=== PATIENT | male | born 1955 | race Caucasian/White ===

== ENCOUNTER 2020-10-19 08:00 | Inpatient (IN) ==
[2020-10-19] MEDS ORDERED: GLUCAGON 1 MG VIAL IM PRN ×2 (09:01)
[2020-10-19] MEDS ORDERED: DEXTROSE 50% 25 GM/50 ML VIAL IV PRN ×2 (09:01)
[2020-10-19] MEDS ORDERED: SODIUM CHLORIDE 0.9% 1,000 ML IV SCH (09:30)
[2020-10-19 11:28] LABS: Basophils % 0.7 % (0.0-0.8); Eosinophils # 0.2 10*3/uL (0.0-0.87); Eosinophils % 4.1 % (0.00-10.9); Hematocrit 40.1 VOL% (42.0-52.0); Hemoglobin 13.6 GM/DL (14.0-18.0); Immature Granulocytes % 0.3 %; Immature Granulocytes Absolute 0.02 #; Lymphocytes % 34.5 % (21.2-54.2); Mean Corpuscular HGB Conc 33.9 GM/DL (32-36); Mean Corpuscular Volume 89.7 FL (87-102); Mean Platelet Volume 11.2 FL (9.6-12.0); Monocytes % 8.1 % (1.7-12.7); Neutrophils % 52.3 % (38.7-73.9); Platelet Count 149 T/CUMM (130-400); Red Blood Count 4.47 MC/CUMM (3.8-5.5); Red Cell Distribution Width 12.2 % (9.3-17.3); White Blood Count 5.9 T/CUMM (4-12)
[2020-10-19] MEDS ORDERED: FAMOTIDINE 20 MG TABLET PO ONE (11:40)
[2020-10-19] MEDS ORDERED: DIAZEPAM 5 MG TABLET PO ONE (11:40)
[2020-10-19 11:43] LABS: Albumin 3.8 G/DL (3.4-5.0); Bilirubin,Total 0.5 MG/DL (0.2-1.0); Calcium 9.1 MG/DL (8.5-10.1); Osmolality,Calculated 277.7 MOS/KG (273-304); Potassium 3.9 MMOL/L (3.5-5.1); Total Protein 7.6 G/DL (6.4-8.2)
[2020-10-19] MEDS ORDERED: PNEUMOCOCCAL VACCINE (13 VALENT) 0.5 ML SYRINGE IM ONE (11:47)
[2020-10-19] MEDS: INSULIN REGULAR 100 UNIT/ML SUBCUT SCH ×2 (12:05→17:23)
[2020-10-19] MEDS: CHLORHEXIDINE 0.12% ORAL RINSE 60 ML BOTTLE SWISH/SPIT SCH ×2 (12:37→21:26)
[2020-10-19] MEDS: CHLORHEXIDINE 4% SOLN 118 ML BOTTLE TOP SCH ×2 (12:38→17:23)
[2020-10-19] MEDS ORDERED: hydrALAZINE 20 MG/1 ML VIAL IV PRN (13:05)
[2020-10-19] MEDS ORDERED: CLORAZEPATE 3.75 MG TABLET PO PRN (13:06)
[2020-10-19 14:34] LABS: Allen Test Positive; Pt O2 Delivery Device Room Air
[2020-10-19 14:36] LABS: ABG Base Excess 2.8 MMOL/L (-2.5-2.5); ABG HCO3 26.6 MMOL/L (20-26); ABG Oxygen Saturation 96.6 % (95-100); ABG PCO2 38.2 MM HG (35-48); ABG PH 7.461 (7.35-7.45); ABG TCO2 27.8 MMOL/L (23-27)
[2020-10-20] MEDS: INSULIN REGULAR 100 UNIT/ML SUBCUT SCH ×2 (00:20→09:42)
[2020-10-20] MEDS ORDERED: PAPAVERINE 60 MG/2 ML VIAL ONE (04:23)
[2020-10-20] MEDS ORDERED: VANCOMYCIN 500 MG VIAL ONE (04:24)
[2020-10-20] MEDS ORDERED: VANCOMYCIN 1,000 MG VIAL ONE (04:24)
[2020-10-20] MEDS ORDERED: CEFUROXIME INJ 1,500 MG in SODIUM CHLORIDE 0.9% 100 ML IV ONE (05:00)
[2020-10-20] MEDS ORDERED: DIAZEPAM 5 MG TABLET PO ONE (05:30)
[2020-10-20] MEDS ORDERED: FAMOTIDINE 20 MG TABLET PO ONE (05:30)
[2020-10-20] MEDS ORDERED: AMINOCAPROIC ACID 5,000 MG/20 ML VIAL ONE (05:41)
[2020-10-20] MEDS ORDERED: VECURONIUM 10 MG VIAL IV ONE ×3 (05:42→10:57)
[2020-10-20] MEDS: CHLORHEXIDINE 4% SOLN 118 ML BOTTLE TOP SCH (05:45)
[2020-10-20] MEDS ORDERED: MIDAZOLAM 10 MG/2 ML VIAL ONE ×3 (05:56→08:47)
[2020-10-20] MEDS ORDERED: SUFentanil 250 MCG/5 ML AMP ONE ×2 (05:56)
[2020-10-20] MEDS ORDERED: SODIUM CHLORIDE 0.9% 1,000 ML IV SCH (06:00)
[2020-10-20] MEDS ORDERED: LIDOCAINE 2% 5 ML VIAL ONE ×2 (06:06→10:14)
[2020-10-20] MEDS ORDERED: ETOMIDATE 40 MG/20 ML VIAL IV ONE (06:06)
[2020-10-20] MEDS: CHLORHEXIDINE 0.12% ORAL RINSE 60 ML BOTTLE SWISH/SPIT SCH ×2 (06:34→09:43)
[2020-10-20 07:41] LABS: ABG Base Excess 0.8 MMOL/L (-2.5-2.5); ABG HCO3 25.2 MMOL/L (20-26); ABG PCO2 35.1 MM HG (35-48); ABG PH 7.449 (7.35-7.45); ABG TCO2 21.1 MMOL/L (23-27); Glucose Heart Surgery 142 MG/DL (74-106); Hematocrit Heart Surgery 40.2 PERCENT (42-52); Hemoglobin Heart Surgery 13.1 G/DL (14.0-18.0); Ionized Calcium Arterial 1.15 MMOL/L (1.21-1.46); PCO2 Patient Temp Arterial 35.1 MMHG; PH Patient Temp Arterial 7.449; Patient Temperature 37 CELCIUS; Potassium Heart/CVR 3.9 MMOL/L (3.5-5.1); Sodium Heart/CVR 137 MMOL/L (135-145)
[2020-10-20 07:47] LABS: Bilirubin,Urine Negative (Negative); Blood, Urine Negative (Negative); Glucose,Urine (UA) Negative (Negative); Ketones,Urine Negative (Negative); Mucus,Urine Occasional /LPF (Occasional); Nitrite,Urine Negative (Negative); Protein,Urine Negative; RBC,Urine <1 /HPF (0-4); Urine Appearance CLEAR (Clear); Urine Color Yellow (Yellow); Urine Specific Gravity 1.013 (1.001-1.035); Urine Urobilinogen < 2.0 EU/DL (0.2-1.0)
[2020-10-20] MEDS ORDERED: POTASSIUM CHLORIDE RIDER 20 MEQ/100 ML PREMIX IV ONE (08:14)
[2020-10-20] MEDS ORDERED: NITROPRUSSIDE 50 MG/2 ML VIAL ONE (08:14)
[2020-10-20] MEDS ORDERED: CALCIUM CHLORIDE 1,000 MG/10 ML SYRINGE IV ONE (08:15)
[2020-10-20] MEDS ORDERED: PHENYLEPHRINE DRIP 40 MG/250 ML PREMIX IV ONE (08:15)
[2020-10-20] MEDS ORDERED: ALBUMIN 5% 12.5 GM/250 ML VIAL IV ONE (08:17)
[2020-10-20] MEDS ORDERED: ATROPINE 1 MG/10 ML SYRINGE ONE (08:17)
[2020-10-20] MEDS ORDERED: EPINEPHrine 1 MG/10 ML SYRINGE ONE (08:17)
[2020-10-20 09:10] LABS: Hematocrit Heart Surgery 26.1 PERCENT (42-52); Hemoglobin Heart Surgery 8.4 G/DL (14.0-18.0); PCO2 Patient Temp Venous 33.9 MM HG; PH Patient Temp Venous 7.468; PO2 Patient Temp Venous 42.9 MM HG; Potassium Heart/CVR 4.8 MMOL/L (3.5-5.1); VBG Base Excess 1.2 MEQ/L (0-4); VBG HCO3 25.3 MEQ/L (24-28); VBG Oxygen Saturation 85.9 %; VBG PCO2 37.4 MMHG (41-51); VBG PH 7.438; VBG PO2 49.2 MMHG (17-40); VBG Total CO2 23.5 MMOL/L
[2020-10-20] MEDS ORDERED: CALCIUM CHLORIDE 1,000 MG/10 ML VIAL IV ONE (09:38)
[2020-10-20 09:46] LABS: Hematocrit Heart Surgery 29.7 PERCENT (42-52); Hemoglobin Heart Surgery 9.6 G/DL (14.0-18.0); PCO2 Patient Temp Venous 32.8 MM HG; PH Patient Temp Venous 7.483; PO2 Patient Temp Venous 40.2 MM HG; Potassium Heart/CVR 4.9 MMOL/L (3.5-5.1); VBG Base Excess 1.5 MEQ/L (0-4); VBG HCO3 25.4 MEQ/L (24-28); VBG Oxygen Saturation 78.6 %; VBG PCO2 32.8 MMHG (41-51); VBG PH 7.483; VBG PO2 40.2 MMHG (17-40); VBG Total CO2 22.5 MMOL/L
[2020-10-20] MEDS ORDERED: methylPREDNISolone SOD SUC 1,000 MG/8 ML VIAL ONE (10:14)
[2020-10-20] MEDS ORDERED: ALBUMIN 25% 25 GM/100 ML VIAL IV ONE (10:14)
[2020-10-20] MEDS ORDERED: SODIUM BICARBONATE 50 MEQ/50 ML VIAL IV ONE (10:15)
[2020-10-20] MEDS ORDERED: MANNITOL 100 GM/500 ML BAG IV ONE (10:15)
[2020-10-20] MEDS ORDERED: DEXTROSE 5% KCL 20 MEQ 20 MEQ/1,000 ML BAG IV ONE (10:15)
[2020-10-20] MEDS ORDERED: PROTAMINE SULFATE 250 MG/25 ML VIAL IV ONE (10:15)
[2020-10-20] MEDS ORDERED: HEPARIN 10,000 UNIT/10 ML VIAL ONE (10:15)
[2020-10-20] MEDS ORDERED: PROTAMINE SULFATE 50 MG/5 ML VIAL IV ONE (10:15)
[2020-10-20] MEDS ORDERED: FUROSEMIDE 20 MG/2 ML VIAL ONE (10:15)
[2020-10-20 10:18] LABS: ABG Base Excess 0.6 MMOL/L (-2.5-2.5); ABG PCO2 33.1 MM HG (35-48); ABG PH 7.465 (7.35-7.45); ABG TCO2 21.1 MMOL/L (23-27); Glucose Heart Surgery 255 MG/DL (74-106); Hematocrit Heart Surgery 35.9 PERCENT (42-52); Hemoglobin Heart Surgery 11.6 G/DL (14.0-18.0); Ionized Calcium Arterial 1.23 MMOL/L (1.21-1.46); PCO2 Patient Temp Arterial 33.1 MMHG; PH Patient Temp Arterial 7.465; Patient Temperature 37 CELCIUS; Potassium Heart/CVR 4.1 MMOL/L (3.5-5.1); Sodium Heart/CVR 134 MMOL/L (135-145)
[2020-10-20] MEDS ORDERED: NITROPRUSSIDE 100 MG in DEXTROSE 5% 250 ML IV PRN (10:33)
[2020-10-20] MEDS ORDERED: SODIUM CHLORIDE 0.45% 1,000 ML IV SCH ×2 (10:33)
[2020-10-20] MEDS ORDERED: MAGNESIUM SULF RIDER 4 GM/100 ML PREMIX IV PRN (10:33)
[2020-10-20] MEDS ORDERED: MORPHINE 10 MG/1 ML VIAL IV PRN (10:33)
[2020-10-20] MEDS ORDERED: PHENYLEPHRINE DRIP 40 MG/250 ML PREMIX IV PRN (10:33)
[2020-10-20] MEDS ORDERED: INSULIN REGULAR DRIP 100 ML IV SCH (10:33)
[2020-10-20] MEDS ORDERED: VECURONIUM 10 MG VIAL IV PRN ×2 (10:33)
[2020-10-20] MEDS ORDERED: MAGNESIUM SULF RIDER 2 GM/50 ML PREMIX IV PRN (10:33)
[2020-10-20] MEDS ORDERED: MORPHINE 4 MG/1 ML VIAL IV PRN (10:33)
[2020-10-20] MEDS ORDERED: LACTATED RINGERS 250 ML IV PRN (10:33)
[2020-10-20] MEDS ORDERED: ACETAMINOPHEN 650 MG SUPP RECTAL PRN (10:33)
[2020-10-20] MEDS ORDERED: DEXTROSE 50% 25 GM/50 ML VIAL IV PRN ×2 (10:33)
[2020-10-20] MEDS ORDERED: ONDANSETRON 4 MG/2 ML VIAL IV PRN (10:33)
[2020-10-20] MEDS ORDERED: INSULIN REGULAR 100 UNIT/ML IV ONE (10:33)
[2020-10-20] MEDS ORDERED: MIDAZOLAM 2 MG/2 ML VIAL IV PRN (10:33)
[2020-10-20] MEDS ORDERED: CHLORHEXIDINE 4% SOLN 118 ML BOTTLE TOP PRN (10:33)
[2020-10-20] MEDS ORDERED: CALCIUM CHLORIDE 1,000 MG/10 ML SYRINGE IV PRN (10:33)
[2020-10-20] MEDS ORDERED: INSULIN REGULAR 100 UNIT/ML IV PRN (10:33)
[2020-10-20] MEDS ORDERED: SEVOFLURANE 1 UNIT/15 MINUTE INH ONE (10:56)
[2020-10-20 11:18] LABS: ABG Base Excess 1.4 MMOL/L (-2.5-2.5); ABG HCO3 25.7 MMOL/L (20-26); ABG Oxygen Saturation 99.9 % (95-100); ABG PH 7.483 (7.35-7.45); ABG TCO2 20.3 MMOL/L (23-27); Glucose Heart Surgery 253 MG/DL (74-106); Hematocrit Heart Surgery 45.2 PERCENT (42-52); Hemoglobin Heart Surgery 14.8 G/DL (14.0-18.0); Potassium Heart/CVR 3.6 MMOL/L (3.5-5.1)
[2020-10-20 11:19] LABS: Basophils % 0.5 % (0.0-0.8); Eosinophils # 0.2 10*3/uL (0.0-0.87); Eosinophils % 1.7 % (0.00-10.9); Hemoglobin 13.2 GM/DL (14.0-18.0); Immature Granulocytes % 0.3 %; Immature Granulocytes Absolute 0.03 #; Lymphocytes # 0.8 10*3/uL (1.4-4.0); Lymphocytes % 9.3 % (21.2-54.2); Mean Corpuscular HGB Conc 34.7 GM/DL (32-36); Mean Corpuscular Volume 87.6 FL (87-102); Mean Platelet Volume 10.9 FL (9.6-12.0); Monocytes % 4.9 % (1.7-12.7); Neutrophils % 83.3 % (38.7-73.9); Platelet Count 122 T/CUMM (130-400); Red Blood Count 4.34 MC/CUMM (3.8-5.5); Red Cell Distribution Width 12.2 % (9.3-17.3); White Blood Count 8.7 T/CUMM (4-12)
[2020-10-20] MEDS: LACTATED RINGERS 1,000 ML IV PRN ×6 (11:30→21:46)
[2020-10-20] MEDS: MIDAZOLAM 10 MG/2 ML VIAL IV PRN ×4 (11:30→17:20)
[2020-10-20 11:34] LABS: INR 1.1; PT Patient Result 11.9 SECS (10.5-12.0); Partial Thromboplastin Time 27.2 SECS (23.9-33.8)
[2020-10-20 11:47] LABS: CKMB % 5.6 %
[2020-10-20 11:52] LABS: Albumin 3.9 G/DL (3.4-5.0); Bilirubin,Total 1.2 MG/DL (0.2-1.0); Calcium 9.2 MG/DL (8.5-10.1); Osmolality,Calculated 281.7 MOS/KG (273-304); Potassium 3.7 MMOL/L (3.5-5.1); Total Protein 7.1 G/DL (6.4-8.2)
[2020-10-20 11:56] LABS: High Sensitive Troponin I* 3608.6 ng/L (0-78)
[2020-10-20] MEDS: POTASSIUM CHLORIDE RIDER 20 MEQ/100 ML PREMIX IV PRN ×4 (12:07→23:21)
[2020-10-20] MEDS: POTASSIUM CHLORIDE RIDER 10 MEQ/100 ML PREMIX IV PRN ×2 (12:37→17:57)
[2020-10-20 13:24] LABS: ABG HCO3 25.3 MMOL/L (20-26); ABG Oxygen Saturation 99.7 % (95-100); ABG PCO2 32.6 MM HG (35-48); ABG PH 7.472 (7.35-7.45); ABG TCO2 20.6 MMOL/L (23-27); Glucose Heart Surgery 180 MG/DL (74-106); Hematocrit Heart Surgery 40.8 PERCENT (42-52); Hemoglobin Heart Surgery 13.3 G/DL (14.0-18.0); Potassium Heart/CVR 3.7 MMOL/L (3.5-5.1)
[2020-10-20] MEDS ORDERED: HALOPERIDOL 5 MG/ML AMP IV ONE (15:23)
[2020-10-20] MEDS: ALBUMIN 5% 12.5 GM/250 ML VIAL IV PRN ×3 (15:30→17:59)
[2020-10-20 16:51] LABS: ABG Base Excess 0.2 MMOL/L (-2.5-2.5); ABG HCO3 24.7 MMOL/L (20-26); ABG Oxygen Saturation 99.7 % (95-100); ABG PH 7.382 (7.35-7.45); ABG TCO2 22.4 MMOL/L (23-27); Glucose Heart Surgery 124 MG/DL (74-106); Hematocrit Heart Surgery 39.7 PERCENT (42-52); Hemoglobin Heart Surgery 12.9 G/DL (14.0-18.0); Potassium Heart/CVR 3.8 MMOL/L (3.5-5.1)
[2020-10-20] MEDS ORDERED: METOPROLOL SUCCINATE XL 25 MG TABLET PO ONE (18:21)
[2020-10-20] MEDS: KETOROLAC 30 MG/1 ML VIAL IV SCH ×2 (18:35→23:35)
[2020-10-20 18:53] LABS: CKMB % 3.9 %
[2020-10-20 18:55] LABS: High Sensitive Troponin I* 5722.4 ng/L (0-78)
[2020-10-20 20:37] LABS: ABG Base Excess 0.9 MMOL/L (-2.5-2.5); ABG HCO3 23.6 MMOL/L (20-26); ABG Oxygen Saturation 98.7 % (95-100); ABG PCO2 31.6 MM HG (35-48); ABG PH 7.492 (7.35-7.45); ABG PO2 156.5 MM HG (80-95); ABG TCO2 24.6 MMOL/L (23-27); Glucose Heart Surgery 156 MG/DL (74-106); Potassium Heart/CVR 4.1 MMOL/L (3.5-5.1)
[2020-10-20] MEDS ORDERED: CHLORHEXIDINE 0.12% ORAL RINSE 60 ML BOTTLE SWISH/SPIT SCH (21:00)
[2020-10-21 01:50] LABS: ABG HCO3 25.4 MMOL/L (20-26); ABG Oxygen Saturation 99.9 % (95-100); ABG PCO2 31.6 MM HG (35-48); ABG PH 7.485 (7.35-7.45); ABG TCO2 21.3 MMOL/L (23-27); Glucose Heart Surgery 117 MG/DL (74-106); Hematocrit Heart Surgery 33.2 PERCENT (42-52); Hemoglobin Heart Surgery 10.8 G/DL (14.0-18.0); Potassium Heart/CVR 3.9 MMOL/L (3.5-5.1)
[2020-10-21 03:54] LABS: ABG Base Excess 0.3 MMOL/L (-2.5-2.5); ABG HCO3 24.7 MMOL/L (20-26); ABG Oxygen Saturation 99.9 % (95-100); ABG PCO2 32.6 MM HG (35-48); ABG PH 7.465 (7.35-7.45); ABG TCO2 20.9 MMOL/L (23-27); Glucose Heart Surgery 122 MG/DL (74-106); Hematocrit Heart Surgery 33.9 PERCENT (42-52)
[2020-10-21] MEDS ORDERED: FUROSEMIDE 40 MG/4 ML VIAL IV ONE (04:04)
[2020-10-21 04:09] LABS: Basophils % 0.1 % (0.0-0.8); Hematocrit 32.3 VOL% (42.0-52.0); Immature Granulocytes % 0.4 %; Immature Granulocytes Absolute 0.06 #; Lymphocytes % 6.6 % (21.2-54.2); Mean Corpuscular HGB Conc 33.4 GM/DL (32-36); Mean Corpuscular Volume 90.5 FL (87-102); Mean Platelet Volume 11.7 FL (9.6-12.0); Monocytes % 5.9 % (1.7-12.7); Platelet Count 115 T/CUMM (130-400); Red Blood Count 3.57 MC/CUMM (3.8-5.5); Red Cell Distribution Width 12.5 % (9.3-17.3)
[2020-10-21 04:10] LABS: Hemoglobin 10.8 GM/DL (14.0-18.0); White Blood Count 14.6 T/CUMM (4-12)
[2020-10-21 04:24] LABS: CKMB % 3.3 %
[2020-10-21] MEDS ORDERED: CEFUROXIME INJ 1,500 MG in SODIUM CHLORIDE 0.9% 100 ML IV SCH (04:30)
[2020-10-21 04:48] LABS: Albumin 3.6 G/DL (3.4-5.0); Bilirubin,Direct 0.18 MG/DL (0.0-0.20); Bilirubin,Total 0.6 MG/DL (0.2-1.0); Calcium 8.6 MG/DL (8.5-10.1); Osmolality,Calculated 278.4 MOS/KG (273-304); Total Protein 6.3 G/DL (6.4-8.2)
[2020-10-21] MEDS: POTASSIUM CHLORIDE RIDER 20 MEQ/100 ML PREMIX IV PRN (04:55)
[2020-10-21] MEDS: KETOROLAC 30 MG/1 ML VIAL IV SCH ×4 (06:32→20:50)
[2020-10-21 06:49] LABS: ABG Base Excess -0.1 MMOL/L (-2.5-2.5); ABG HCO3 23.2 MMOL/L (20-26); ABG Oxygen Saturation 95.9 % (95-100); ABG PH 7.464 (7.35-7.45); ABG PO2 82.5 MM HG (80-95); ABG TCO2 24.2 MMOL/L (23-27); Glucose Heart Surgery 186 MG/DL (74-106); Hemoglobin Heart Surgery 11.6 G/DL (14.0-18.0); Potassium Heart/CVR 3.8 MMOL/L (3.5-5.1)
[2020-10-21] MEDS ORDERED: DEXTROMETHORPHAN PO PRN (06:59)
[2020-10-21] MEDS ORDERED: PHENYLEPHRINE PO PRN (06:59)
[2020-10-21] MEDS ORDERED: CHLORPHENIRAMINE PO PRN (06:59)
[2020-10-21] MEDS ORDERED: DEXTROSE 50% 25 GM/50 ML VIAL IV PRN ×2 (07:37)
[2020-10-21] MEDS ORDERED: MAGNESIUM SULF RIDER 2 GM/50 ML PREMIX IV PRN (07:37)
[2020-10-21] MEDS ORDERED: GLUCAGON 1 MG VIAL IM PRN ×2 (07:37)
[2020-10-21] MEDS ORDERED: MAGNESIUM SULF RIDER 4 GM/100 ML PREMIX IV PRN (07:37)
[2020-10-21] MEDS ORDERED: ONDANSETRON 4 MG/2 ML VIAL IV PRN (07:37)
[2020-10-21] MEDS ORDERED: ACETAMINOPHEN 325 MG TABLET PO PRN (07:37)
[2020-10-21] MEDS ORDERED: INSULIN REGULAR 100 UNIT/ML SUBCUT SCH (07:37)
[2020-10-21] MEDS ORDERED: oxyCODONE/ACETAMINOPHEN 5-325 MG TABLET PO PRN (07:37)
[2020-10-21] MEDS ORDERED: ZALEPLON 5 MG CAPSULE PO PRN (07:37)
[2020-10-21] MEDS ORDERED: ALUMINUM/MAGNES/SIMETH MAX STR 30 ML UDCUP PO PRN (07:37)
[2020-10-21] MEDS: FERROUS SULFATE 325 MG TABLET PO SCH (08:35)
[2020-10-21] MEDS: DOCUSATE SODIUM 100 MG CAPSULE PO SCH (08:35)
[2020-10-21] MEDS: ASPIRIN EC 325 MG TABLET PO SCH (08:35)
[2020-10-21] MEDS: LOSARTAN 25 MG TABLET PO SCH (08:36)
[2020-10-21] MEDS: METOPROLOL SUCCINATE XL 25 MG TABLET PO SCH (08:36)
[2020-10-21] MEDS: PANTOPRAZOLE 40 MG TABLET PO SCH (08:36)
[2020-10-21] MEDS: ISOSORBIDE MONONITRATE 30 MG TABLET PO SCH (08:36)
[2020-10-21] MEDS: CHLORHEXIDINE 0.12% ORAL RINSE 60 ML BOTTLE SWISH/SPIT SCH (08:37)
[2020-10-21] MEDS: INSULIN REGULAR 100 UNIT/ML SUBCUT SCH ×4 (08:38→20:50)
[2020-10-21] MEDS: SODIUM CHLOR 0.45% KCL 20 MEQ 20 MEQ/1,000 ML BAG IV SCH (09:03)
[2020-10-21] MEDS: CEFUROXIME INJ 1,500 MG in SODIUM CHLORIDE 0.9% 100 ML IV SCH (16:27)
[2020-10-21] MEDS ORDERED: METOCLOPRAMIDE 10 MG/2 ML VIAL IV ONE (18:17)
[2020-10-21] MEDS ORDERED: PROMETHAZINE INJ 12.5 MG in SODIUM CHLORIDE 0.9% 50 ML IV ONE (19:00)
[2020-10-21] MEDS: metFORMIN 500 MG TABLET PO SCH (20:50)
[2020-10-22] MEDS: KETOROLAC 30 MG/1 ML VIAL IV SCH ×4 (00:57→20:57)
[2020-10-22] MEDS: CHLORHEXIDINE 0.12% ORAL RINSE 60 ML BOTTLE SWISH/SPIT SCH ×3 (00:57→20:57)
[2020-10-22] MEDS ORDERED: FUROSEMIDE 40 MG/4 ML VIAL IV ONE (06:00)
[2020-10-22] MEDS: INSULIN REGULAR 100 UNIT/ML SUBCUT SCH ×6 (06:19→20:57)
[2020-10-22 06:50] LABS: Basophils % 0.1 % (0.0-0.8); Eosinophils % 0.1 % (0.00-10.9); Hematocrit 31.8 VOL% (42.0-52.0); Hemoglobin 10.2 GM/DL (14.0-18.0); Immature Granulocytes % 0.6 %; Immature Granulocytes Absolute 0.08 #; Lymphocytes # 2.5 10*3/uL (1.4-4.0); Lymphocytes % 17.7 % (21.2-54.2); Mean Corpuscular HGB Conc 32.1 GM/DL (32-36); Mean Corpuscular Volume 93.3 FL (87-102); Mean Platelet Volume 11.9 FL (9.6-12.0); Neutrophils % 74.5 % (38.7-73.9); Platelet Count 126 T/CUMM (130-400); Red Blood Count 3.41 MC/CUMM (3.8-5.5); Red Cell Distribution Width 13.1 % (9.3-17.3); White Blood Count 14.2 T/CUMM (4-12)
[2020-10-22] MEDS: CEFUROXIME INJ 1,500 MG in SODIUM CHLORIDE 0.9% 100 ML IV SCH ×2 (07:14→17:35)
[2020-10-22 07:15] LABS: Albumin 3.7 G/DL (3.4-5.0); Bilirubin,Direct 0.2 MG/DL (0.0-0.20); Bilirubin,Indirect 0.4 MG/DL (0.0-1.0); Bilirubin,Total 0.6 MG/DL (0.2-1.0); Calcium 8.4 MG/DL (8.5-10.1); Osmolality,Calculated 278.5 MOS/KG (273-304); Potassium 3.6 MMOL/L (3.5-5.1); Total Protein 6.7 G/DL (6.4-8.2)
[2020-10-22] MEDS: PANTOPRAZOLE 40 MG TABLET PO SCH (08:28)
[2020-10-22] MEDS: LOSARTAN 25 MG TABLET PO SCH (08:28)
[2020-10-22] MEDS: DOCUSATE SODIUM 100 MG CAPSULE PO SCH (08:29)
[2020-10-22] MEDS: FERROUS SULFATE 325 MG TABLET PO SCH (08:29)
[2020-10-22] MEDS: ASPIRIN EC 325 MG TABLET PO SCH (08:29)
[2020-10-22] MEDS: METOPROLOL SUCCINATE XL 25 MG TABLET PO SCH (08:29)
[2020-10-22] MEDS: ISOSORBIDE MONONITRATE 30 MG TABLET PO SCH (08:29)
[2020-10-22] MEDS: MAGNESIUM HYDROXIDE SUSP 30 ML UDCUP PO PRN (08:36)
[2020-10-22] MEDS: SODIUM CHLOR 0.45% KCL 20 MEQ 20 MEQ/1,000 ML BAG IV SCH (10:40)
[2020-10-22] MEDS: metFORMIN 500 MG TABLET PO SCH (20:57)
[2020-10-23] MEDS: INSULIN REGULAR 100 UNIT/ML SUBCUT SCH ×6 (00:32→20:26)
[2020-10-23] MEDS: KETOROLAC 30 MG/1 ML VIAL IV SCH ×4 (02:17→20:25)
[2020-10-23] MEDS: CEFUROXIME INJ 1,500 MG in SODIUM CHLORIDE 0.9% 100 ML IV SCH ×2 (05:33→16:49)
[2020-10-23 05:41] LABS: Basophils % 0.3 % (0.0-0.8); Eosinophils # 0.2 10*3/uL (0.0-0.87); Eosinophils % 1.6 % (0.00-10.9); Hematocrit 30.2 VOL% (42.0-52.0); Hemoglobin 9.8 GM/DL (14.0-18.0); Immature Granulocytes % 0.4 %; Immature Granulocytes Absolute 0.04 #; Lymphocytes # 2.5 10*3/uL (1.4-4.0); Lymphocytes % 26.7 % (21.2-54.2); Mean Corpuscular HGB Conc 32.5 GM/DL (32-36); Mean Corpuscular Volume 92.9 FL (87-102); Mean Platelet Volume 10.9 FL (9.6-12.0); Monocytes % 10.1 % (1.7-12.7); Neutrophils % 60.9 % (38.7-73.9); Platelet Count 118 T/CUMM (130-400); Red Blood Count 3.25 MC/CUMM (3.8-5.5); Red Cell Distribution Width 12.9 % (9.3-17.3); White Blood Count 9.4 T/CUMM (4-12)
[2020-10-23 06:02] LABS: Alanine Aminotransferase 16 U/L (16-61); Albumin 3.1 G/DL (3.4-5.0); Alkaline Phosphatase 49 U/L (45-117); Aspartate Amino Transferase 20 U/L (0-37); Bilirubin,Indirect 0.5 MG/DL (0.0-1.0); Blood Urea Nitrogen 14 MG/DL (7-18); Carbon Dioxide 30 MMOL/L (21-32); Estimated Glom Filtration Rate 126 ML/MIN; Glucose 121 MG/DL (74-106); Osmolality,Calculated 276.7 MOS/KG (273-304); Potassium 3.4 MMOL/L (3.5-5.1); Sodium 138 MMOL/L (136-145)
[2020-10-23] MEDS: MAGNESIUM HYDROXIDE SUSP 30 ML UDCUP PO PRN (08:15)
[2020-10-23] MEDS: DOCUSATE SODIUM 100 MG CAPSULE PO SCH (08:18)
[2020-10-23] MEDS: ASPIRIN EC 325 MG TABLET PO SCH (08:19)
[2020-10-23] MEDS: LOSARTAN 25 MG TABLET PO SCH (08:19)
[2020-10-23] MEDS: ISOSORBIDE MONONITRATE 30 MG TABLET PO SCH (08:19)
[2020-10-23] MEDS: POTASSIUM CHLORIDE 20 MEQ TABLET PO PRN ×3 (08:19→13:46)
[2020-10-23] MEDS: METOPROLOL SUCCINATE XL 25 MG TABLET PO SCH (08:20)
[2020-10-23] MEDS: PANTOPRAZOLE 40 MG TABLET PO SCH (08:20)
[2020-10-23] MEDS: FERROUS SULFATE 325 MG TABLET PO SCH (08:20)
[2020-10-23] MEDS: CHLORHEXIDINE 0.12% ORAL RINSE 60 ML BOTTLE SWISH/SPIT SCH ×2 (08:23→20:26)
[2020-10-23] MEDS: LACTULOSE 20 GM/30 ML UDCUP PO PRN ×2 (09:28→15:57)
[2020-10-23] MEDS: metFORMIN 500 MG TABLET PO SCH (20:25)
[2020-10-24] MEDS: KETOROLAC 30 MG/1 ML VIAL IV SCH (02:03)
[2020-10-24] MEDS: CEFUROXIME INJ 1,500 MG in SODIUM CHLORIDE 0.9% 100 ML IV SCH ×2 (04:41→16:44)
[2020-10-24] MEDS: INSULIN REGULAR 100 UNIT/ML SUBCUT SCH ×4 (08:16→20:24)
[2020-10-24] MEDS: CHLORHEXIDINE 0.12% ORAL RINSE 60 ML BOTTLE SWISH/SPIT SCH ×2 (08:41→20:25)
[2020-10-24] MEDS: DOCUSATE SODIUM 100 MG CAPSULE PO SCH (08:48)
[2020-10-24] MEDS: ASPIRIN EC 325 MG TABLET PO SCH (08:48)
[2020-10-24] MEDS: FERROUS SULFATE 325 MG TABLET PO SCH (08:48)
[2020-10-24] MEDS: METOPROLOL SUCCINATE XL 25 MG TABLET PO SCH (08:48)
[2020-10-24] MEDS: ISOSORBIDE MONONITRATE 30 MG TABLET PO SCH (08:48)
[2020-10-24] MEDS: PANTOPRAZOLE 40 MG TABLET PO SCH (08:48)
[2020-10-24] MEDS: LOSARTAN 25 MG TABLET PO SCH (08:49)
[2020-10-24] MEDS: metFORMIN 500 MG TABLET PO SCH (20:24)
[2020-10-24] MEDS ORDERED: ATORVASTATIN 40 MG TABLET PO SCH (21:00)
[2020-10-25] MEDS: CEFUROXIME INJ 1,500 MG in SODIUM CHLORIDE 0.9% 100 ML IV SCH (04:43)
[2020-10-25 05:49] LABS: Basophils % 0.4 % (0.0-0.8); Eosinophils # 0.4 10*3/uL (0.0-0.87); Eosinophils % 4.6 % (0.00-10.9); Hematocrit 32.2 VOL% (42.0-52.0); Hemoglobin 10.6 GM/DL (14.0-18.0); Immature Granulocytes % 0.3 %; Immature Granulocytes Absolute 0.03 #; Lymphocytes # 2.2 10*3/uL (1.4-4.0); Lymphocytes % 25.1 % (21.2-54.2); Mean Corpuscular HGB Conc 32.9 GM/DL (32-36); Mean Corpuscular Volume 91.7 FL (87-102); Mean Platelet Volume 11.1 FL (9.6-12.0); Monocytes % 10.6 % (1.7-12.7); Platelet Count 165 T/CUMM (130-400); Red Blood Count 3.51 MC/CUMM (3.8-5.5); Red Cell Distribution Width 12.8 % (9.3-17.3); White Blood Count 8.9 T/CUMM (4-12)
[2020-10-25 06:04] LABS: Alanine Aminotransferase 23 U/L (16-61); Albumin 3.3 G/DL (3.4-5.0); Alkaline Phosphatase 72 U/L (45-117); Aspartate Amino Transferase 17 U/L (0-37); Bilirubin,Indirect 0.4 MG/DL (0.0-1.0); Blood Urea Nitrogen 10 MG/DL (7-18); Calcium 8.6 MG/DL (8.5-10.1); Carbon Dioxide 30 MMOL/L (21-32); Estimated Glom Filtration Rate 134 ML/MIN; Glucose 137 MG/DL (74-106); Osmolality,Calculated 275.7 MOS/KG (273-304); Potassium 3.9 MMOL/L (3.5-5.1); Sodium 138 MMOL/L (136-145); Total Protein 6.8 G/DL (6.4-8.2)
[2020-10-25 08:35] VITALS: BP 147/81
[2020-10-25] MEDS: LOSARTAN 25 MG TABLET PO SCH (08:48)
[2020-10-25] MEDS: INSULIN REGULAR 100 UNIT/ML SUBCUT SCH (08:48)
[2020-10-25] MEDS: ISOSORBIDE MONONITRATE 30 MG TABLET PO SCH (08:49)
[2020-10-25] MEDS: CHLORHEXIDINE 0.12% ORAL RINSE 60 ML BOTTLE SWISH/SPIT SCH (08:49)
[2020-10-25] MEDS: PANTOPRAZOLE 40 MG TABLET PO SCH (08:49)
[2020-10-25] MEDS: DOCUSATE SODIUM 100 MG CAPSULE PO SCH (08:49)
[2020-10-25] MEDS: ASPIRIN EC 325 MG TABLET PO SCH (08:49)
[2020-10-25] MEDS: FERROUS SULFATE 325 MG TABLET PO SCH (08:49)
[2020-10-25] MEDS: METOPROLOL SUCCINATE XL 25 MG TABLET PO SCH (08:53)
== END 2020-10-25 11:32 | disposition home health service (06) | DRG 236 ==
LOC: N.TELES 10:18 → N.CVR 10-20 10:10 → N.TELES 10-21 14:43